=== PATIENT | male | born 1970 | race Caucasian/White ===

== ENCOUNTER 2020-04-08 01:44 | Outpatient (CLI) | payer OTHER, SELFPAY ==
[2020-04-09 00:21] LABS: SARS-CoV-2 RNA PCR Negative
== END 2020-04-08 01:45 | disposition home or self-care (01) ==
LOC: ANHCOVIDDT 01:44
PROVIDERS: PCP Family Medicine; Visit Provider Internal Medicine Gastroenterology
DX: Z01.812 Encounter for preprocedural laboratory examination (principal); Z20.822 Contact with and (suspected) exposure to COVID-19
CPT/HCPCS: C9803; U0003; U0005

== ENCOUNTER 2020-04-12 00:30 | Day surgery (SDC) | payer OTHER, SELFPAY ==
[2020-04-05 13:41] VITALS: BMI 23.9
--- NOTE | 2020-04-11 12:57 | WPDANESEPPF ---
Anes - Initial Pre Proc Eval Procedure: Operation Date: 04/12/20 07:30 Proposed Procedures p Colonoscopy - Ronald Park MD Date/Time: 04/11/20 12:57 Surgeon: Ronald Park MD Pre Op Diagnosis: Positive Cologard Patient Data Age: 49 Gender: M Height: 1.83 m Weight: 80 kg Allergies Allergy/AdvReac Type Severity Reaction Status Date / Time No Known Allergies Allergy Unverified 04/12/20 06:15 Home Medications Medication Instructions Recorded Confirmed Type metoprolol succinate 25 mg 25 mg PO DAILY #90 tablet 10/13/19 04/05/20 Rx tablet,extended release 24 hr sodium,potassium,mag sulfates 17.5 See Rx Instructions PO .COMPLEX 04/04/20 Rx gram-3.13 gram-1.6 gram oral soln #354 ml lisinopril 10 mg PO DAILY 04/05/20 04/05/20 History bjtch-9-dve-epa-tuna oil 2 tablet PO DAILY 04/05/20 04/05/20 History Patient hx anesthesia problems: none Family hx anesthesia problems: none [facility] Past Medical History Medical History Chewing tobacco nicotine dependence without complication Essential (primary) hypertension Lipoprotein deficiency Social History Social History Smoking status: Never smoker Smokeless tobacco user: chewing tobacco Alcohol intake: current Substance use: never Substance use type: does not use Living arrangements: with family Spiritual care concerns: No Anes - Eval Final PreProcedure Day of Procedure 04/11/20 12:57 Patient weight: normal Heart: regular rate and rhythm Lungs: clear to auscultation and normal air movement Airway: Mallampati scale class II Neurological: alert and oriented Last oral intake: >/= 8 hours ASA classification: II Emergent: no Anesthetic plan: proceed Anesthesia type and monitoring: general GIVS and standard monitoring Informed Consent: The patient's anesthetic plan and its attendant risks and benefits were discussed with the patient/family/POA. Questions were solicited and answers provided to the satisfaction of the patient/family/POA.
[2020-04-12 06:16] VITALS: BP 121/87; PULSE 110; RESP 18; TEMP 36.6; O2SAT 99; BMI 23.3
[2020-04-12] MEDS: LACTATED RINGERS 1,000 ML 150 ML IV CONT (06:26)
[2020-04-12] MEDS: SIMETHICONE ORAL SUSPENSION 20 MG/0.3 ML 30 ML BOTTLE 0.6 ML IRRIGATION (08:07)
--- NOTE | 2020-04-12 08:43 | WPDGICN ---
Assessment and Plan Assessment and plan (1) Colon cancer screening: Code(s): Z12.11 - Encounter for screening for malignant neoplasm of colon Status: Acute Assessment and Plan: Patient presents for screening colonoscopy. He did have a positive cologuard test. No other risk factors are evident. Plan is for colonoscopy now further recommendations will be given after endoscopy GI Consult Note Consult date/time: 04/12/20 08:43 HPI: Richard Martínez is a 49 year old male Seen in evaluation at the request of Dr. Terrence Hunter. Patient presents for neoplasia screening colonoscopy. He recently had a positive colo guard test. patient states that his current weight appetite bowel movements are normal. He denies abdominal pain. He has had no bleeding. His weight has remained stable. Family history is noncontributory. Review of Systems Review of Systems: All systems reviewed & are unremarkable except as noted in HPI and below PMFSH Past Medical History Medical History Chewing tobacco nicotine dependence without complication Essential (primary) hypertension Lipoprotein deficiency Social History Social History (Reviewed 02/04/20 @ 11:34 by Ivon Reyes [facility]) Smoking status: Never smoker Smokeless tobacco user: chewing tobacco Alcohol intake: current Substance use: never Substance use type: does not use Living arrangements: with family Spiritual care concerns: No Meds Home Medications and Allergies Home Medications Medication Instructions Recorded Confirmed Type metoprolol succinate 25 mg 25 mg PO DAILY #90 tablet 10/13/19 04/05/20 Rx tablet,extended release 24 hr sodium,potassium,mag sulfates 17.5 See Rx Instructions PO .COMPLEX 04/04/20 Rx gram-3.13 gram-1.6 gram oral soln #354 ml lisinopril 10 mg PO DAILY 04/05/20 04/05/20 History fawad-9-edf-epa-tuna oil 2 tablet PO DAILY 04/05/20 04/05/20 History Allergies Allergy/AdvReac Type Severity Reaction Status Date / Time No Known Allergies Allergy Unverified 04/12/20 06:15 Vital Signs Vital Signs - 24 hr 04/12/20 06:16 Temperature 98 F Pulse Rate 110 H Respiratory Rate 18 Blood Pressure 121/87 Pulse Oximetry 99 Exam Narrative: Exam Narrative: Physical exam reveals patient to be alert. Vital signs stable. HEENT exam unremarkable. Patient is anicteric. Lungs are clear to auscultation and percussion. Heart is without murmur or extra sounds. Abdominal exam bowel sounds are present soft nontender with no organomegaly. Digital external rectal exam normal.
[2020-04-12 08:45] VITALS: BP 107/78; PULSE 92; RESP 18; O2SAT 97
[2020-04-12 08:55] VITALS: BP 110/77; PULSE 101; RESP 20; O2SAT 100
[2020-04-12 09:05] VITALS: BP 139/94; PULSE 88; RESP 17; O2SAT 100
== END 2020-04-12 09:26 | disposition home or self-care (01) ==
PROVIDERS: PCP Family Medicine; Visit Provider Internal Medicine Gastroenterology
PROC: 0DJD8ZZ Inspection of Lower Intestinal Tract, Via Natural or Artificial Opening Endoscopic (ICD-10-PCS; CPT 45378; principal; 2020-04-12 07:30)
DX: Z12.11 Encounter for screening for malignant neoplasm of colon (principal); D12.2 Benign neoplasm of ascending colon; D12.3 Benign neoplasm of transverse colon; D12.4 Benign neoplasm of descending colon; K63.5 Polyp of colon; R19.5 Other fecal abnormalities; I10 Essential (primary) hypertension; E78.6 Lipoprotein deficiency; F17.220 Nicotine dependence, chewing tobacco, uncomplicated
CPT/HCPCS: 45385; 45381; 88305; C9803; J2704; J7120; U0003; U0005

== ENCOUNTER 2020-12-08 02:19 | Day surgery (SDC) | payer OTHER, SELFPAY ==
[2020-11-24 13:23] VITALS: BMI 23.9
[2020-12-08 07:47] VITALS: BP 136/102; PULSE 87; RESP 16; TEMP 36.5; O2SAT 97; BMI 23.7
[2020-12-08] MEDS: LACTATED RINGERS 1,000 ML 150 ML IV CONT (07:55)
[2020-12-08 07:57] VITALS: BP 120/91
--- NOTE | 2020-12-08 07:58 | P.CONGI_ITS ---
Assessment and Plan Assessment and plan (1) History of colon polyps: Code(s): Z86.010 - Personal history of colonic polyps Status: Acute Assessment and Plan: Patient had several large benign colon polyps removed from the colon piecemeal fashion in March 2020. Patient presents today for follow-up examination to ensure complete excision of these polyps. Further recommendation will be given after endoscopy. GI Consult Note Consult date/time: 12/08/20 07:58 HPI: Richard Martínez is a 50 year old male Presents for follow-up colonoscopy. Patient has a history of very large colon polyp resected in March of 2020. He states his current weight appetite bowel movements normal. He has had no abdominal pain. He has had no bleeding. His family history is noncontributory. Because of the very large size of the polyp which was removed piecemeal fashion he presents today for follow-up exam. Review of Systems Review of Systems: All systems reviewed & are unremarkable except as noted in HPI and below PMFSH Past Medical History Medical History Chewing tobacco nicotine dependence without complication Essential (primary) hypertension Lipoprotein deficiency Social History Social History (Updated 10/06/20 @ 11:18 by Gracie Bojorquez [facility]) Smoking status: Never smoker Smokeless tobacco user: chewing tobacco Alcohol intake: never Substance use: never Substance use type: does not use Living arrangements: with family Spiritual care concerns: No Meds Home Medications and Allergies Home Medications Medication Instructions Recorded Confirmed Type bvnsb-2-wsy-epa-tuna oil 2 tablet PO DAILY 04/05/20 12/08/20 History lisinopril 10 mg tablet 10 mg PO DAILY #90 tablet 07/03/20 12/08/20 Rx metoprolol succinate 25 mg 25 mg PO DAILY #90 tablet 10/02/20 12/08/20 Rx tablet,extended release 24 hr Allergies Allergy/AdvReac Type Severity Reaction Status Date / Time No Known Allergies Allergy Verified 12/08/20 07:45 Vital Signs Vital Signs - 24 hr 12/08/20 07:47 12/08/20 07:57 Temperature 97.7 F Pulse Rate 87 Respiratory Rate 16 Blood Pressure 136/102 H 120/91 H Pulse Oximetry 97 Exam Narrative: Physical exam reveals patient be alert. Vital signs stable. HEENT exam is unremarkable. Patient is anicteric. Lungs are clear to auscultation and percussion. Heart is without murmur or extra sounds. Abdominal exam bowel sounds are present soft nontender with no organomegaly. Digital external rectal exam is normal.
--- NOTE | 2020-12-08 08:16 | WPDANESEPPF ---
Anes - Initial Pre Proc Eval Procedure: Operation Date: 12/08/20 08:30 Proposed Procedures p Screening Colonoscopy - Ronald Park MD Date/Time: 12/08/20 08:16 Surgeon: Ronald Park MD Pre Op Diagnosis: hx of colon polyps Z86.010 Patient Data Age: 50 Gender: M Height: 1.83 m Weight: 79.3 kg Last Vital Signs Temp 97.7 F 12/08/20 07:47 Pulse 87 12/08/20 07:47 Resp 16 12/08/20 07:47 BP 120/91 H 12/08/20 07:57 Pulse Ox 97 12/08/20 07:47 Allergies Allergy/AdvReac Type Severity Reaction Status Date / Time No Known Allergies Allergy Verified 12/08/20 07:45 Home Medications Medication Instructions Recorded Confirmed Type sobid-3-uzh-epa-tuna oil 2 tablet PO DAILY 04/05/20 12/08/20 History lisinopril 10 mg tablet 10 mg PO DAILY #90 tablet 07/03/20 12/08/20 Rx metoprolol succinate 25 mg 25 mg PO DAILY #90 tablet 10/02/20 12/08/20 Rx tablet,extended release 24 hr Patient hx anesthesia problems: none Family hx anesthesia problems: none Results Review: All pre-operative results and documents have been reviewed as part of the pre-operative evaluation. [facility] Past Medical History Medical History Chewing tobacco nicotine dependence without complication Essential (primary) hypertension Lipoprotein deficiency Social History Social History (Updated 10/06/20 @ 11:18 by Gracie Bojorquez CMA) Smoking status: Never smoker Smokeless tobacco user: chewing tobacco Alcohol intake: never Substance use: never Substance use type: does not use Living arrangements: with family Spiritual care concerns: No Anes - Eval Final PreProcedure Day of Procedure 12/08/20 08:16 Patient weight: normal Heart: regular rate and rhythm Lungs: clear to auscultation Airway: Mallampati scale class II Neurological: alert and oriented Last oral intake: >/= 8 hours ASA classification: II Emergent: no Anesthetic plan: proceed Anesthesia type and monitoring: general GIVS and standard monitoring Results Review: All pre-operative results and documents have been reviewed as part of the pre-operative evaluation. Informed Consent: The patient's anesthetic plan and its attendant risks and benefits were discussed with the patient/family/POA. Questions were solicited and answers provided to the satisfaction of the patient/family/POA.
[2020-12-08 08:51] VITALS: BP 96/67; PULSE 88; RESP 22
[2020-12-08 09:01] VITALS: BP 109/76; PULSE 89; RESP 20
[2020-12-08 09:11] VITALS: BP 143/106; PULSE 90; RESP 22
== END 2020-12-08 09:19 | disposition home or self-care (01) ==
PROVIDERS: PCP Family Medicine; Visit Provider Internal Medicine Gastroenterology
PROC: 0DJD8ZZ Inspection of Lower Intestinal Tract, Via Natural or Artificial Opening Endoscopic (ICD-10-PCS; CPT 45378; principal; 2020-12-08 08:30)
DX: Z12.11 Encounter for screening for malignant neoplasm of colon (principal); K63.5 Polyp of colon; K64.8 Other hemorrhoids; K57.30 Diverticulosis of large intestine without perforation or abscess without bleeding; I10 Essential (primary) hypertension; E78.6 Lipoprotein deficiency
CPT/HCPCS: 45385; 88305; J2704; J7120

== ENCOUNTER 2022-04-01 13:08 | Emergency (ER) | payer OTHER, SELFPAY ==
--- NOTE | 2022-04-01 13:14 | ED.URI ---
HPI - URI/Sore Throat General Chief Complaint: Upper Respiratory Infection Stated Complaint: Sore Throat,Bilateral Eye Irritation,Lt Ear Time Seen by Provider: 04/01/22 14:03 Source: patient and RN notes reviewed Mode of arrival: ambulatory Limitations: no limitations History of Present Illness HPI Narrative: 51-year-old male presents with concern for 4 day history of nasal drainage, sore throat, ear pressure, cough. Reports body aches and fatigue. He denies known sick contacts. He reports he had a negative COVID test at home. MD elicited complaint: cough and sore throat Related Data Allergies Allergy/AdvReac Type Severity Reaction Status Date / Time No Known Allergies Allergy Verified 04/01/22 13:41 Review of Systems Review of Systems: CONSTITUTIONAL: Reports malaise, fatigue. Denies chills, sweats, or fever. EYES: Denies visual changes, redness, or discharge. ENT: Reports rhinorrhea, congestion, sore throat. Denies sinus pain, otalgia CARDIOVASCULAR: Denies chest pain, palpitations, or edema. RESPIRATORY: Reports cough. Denies dyspnea. GASTROINTESTINAL: Denies abdominal pain, nausea, vomiting, diarrhea SKIN: Denies rash or itching. MUSCULOSKELETAL: Reports myalgia. NEUROLOGIC: Denies headache. All systems reviewed & are unremarkable except as noted in HPI and below PMFSH Past Medical History Medical History Chewing tobacco nicotine dependence without complication Essential (primary) hypertension Lipoprotein deficiency Social History Social History (Updated 03/13/22 @ 13:21 by Oxana Soto MA) Smoking status: Never smoker Smokeless tobacco user: chewing tobacco Alcohol intake: never Substance use: never Substance use type: does not use Lack of Transportation: No Lack of Food: Never True Current Housing: I Have Housing Concerned About Future Housing: No Difficulty Paying Gas/Electric Bills: No Difficulty Paying for Meds: No Currently Unemployed: No Education: High School Diploma/GED Difficulty w/ Childcare or Family Care: No Spiritual care concerns: No Comments At time of signature, agree with nursing past medical, surgical, social and family history. There is no relevant family history pertinent to the presenting complaint Exam Narrative: GENERAL: Nontoxic appearing and in no acute distress. HEAD: Normocephalic EYES: PERRLA, conjunctivae clear ENT: Nares clear, turbinates edematous and erythematous, clear discharge. Mucous membranes moist. TM pearly cota with dull light reflex bilaterally; no tragal tenderness. Oropharynx not erythematous without lesions. Tonsils not enlarged and without exudate, no drooling, no hoarseness, no trismus, uvula midline. NECK: Supple. No lymphadenopathy CHEST: Clear to auscultation, breath sounds equal. No wheezing, rhonchi, rales, or stridor. No respiratory distress, speaks in full sentences. HEART: Regular rate and rhythm. No murmur heard. SKIN: Warm, dry, no rash. NEURO: Alert and oriented x3. PSYCH: Normal mood and affect Course Course Emergency Course: Patient is aware of diagnosis, understands and agrees to treatment plan. Anticipatory guidance given. Patient agrees to follow-up as directed and is aware of reasons to seek care at the emergency department. Portions of this record may have been created with voice recognition software Level of Care: Express Care Visit Vital Signs Vital signs: Reviewed. MDM - URI/Sore Throat MDM Narrative Medical decision making narrative: Differential diagnosis considered: [place] virus, strep pharyngitis, allergic rhinitis, upper respiratory tract infection, sinusitis, rhinosinusitis, nasopharyngitis. viral pharyngitis, otitis media, otitis externa, pneumonia, bronchitis, viral cough syndrome, viral syndrome, and influenza. Exam findings show no acute concerns or changes; patient is non-toxic appearing and is in no distress. Patient is approp
[2022-04-01 13:29] VITALS: BP 140/97; PULSE 95; RESP 18; TEMP 36.8; O2SAT 99
== END 2022-04-01 14:14 | disposition home or self-care (01) ==
PROVIDERS: Emergency Provider Nurse Practitioner; PCP Family Medicine
DX: J06.9 Acute upper respiratory infection, unspecified (principal); F17.220 Nicotine dependence, chewing tobacco, uncomplicated
CPT/HCPCS: 87081; 87804; 87880; 99213; G0463

== ENCOUNTER 2024-01-28 01:13 | Day surgery (SDC) | payer OTHER, SELFPAY ==
[2024-01-19 11:19] VITALS: BMI 25.1
[2024-01-28 10:17] VITALS: BP 118/80; PULSE 91; RESP 18; TEMP 36; O2SAT 100; BMI 24.6
[2024-01-28] MEDS: LACTATED RINGERS 1,000 ML 150 ML IV CONT (10:28)
--- NOTE | 2024-01-28 10:29 | PM.HPGS ---
History of Present Illness History of Present Illness Consent: Risks, benefits, and alternatives have been discussed and questions answered. Patient agrees to proceed with procedure. Chief complaint: Personal Hx. colon polyps Narrative: Richard Montoya is a 53 year old male with colon polyp in 2020 Review of Systems Review of Systems: All systems reviewed & are unremarkable except as noted in HPI and below PMFSH Past Medical History Medical History Chewing tobacco nicotine dependence without complication Essential (primary) hypertension Lipoprotein deficiency Social History Social History Smoking status: Never smoker Smokeless tobacco user: chewing tobacco Alcohol intake: never Substance use: never Substance use type: does not use Lack of Transportation: No Lack of Food: Never True Current Housing: I Have Housing Concerned About Future Housing: No Difficulty Paying Gas/Electric Bills: No Difficulty Paying for Meds: No Currently Unemployed: No Education: High School Diploma/GED Difficulty w/ Childcare or Family Care: No Living arrangements: with family Spiritual care concerns: No Meds Home Medications and Allergies Home Medications Medication Instructions Recorded Confirmed Type atorvastatin 10 mg tablet 10 mg PO QHS #90 tabs 08/18/23 01/28/24 Rx lisinopril 20 mg tablet 20 mg PO DAILY #90 tabs 08/18/23 01/28/24 Rx metoprolol succinate 25 mg 25 mg PO DAILY #90 tabs 09/15/23 01/28/24 Rx tablet,extended release 24 hr Allergies Allergy/AdvReac Type Severity Reaction Status Date / Time No Known Allergies Allergy Verified 01/28/24 10:15 Vital Signs Vital Signs - 24 hr 01/28/24 10:17 Temperature 96.8 F L Pulse Rate 91 Respiratory Rate 18 Blood Pressure 118/80 Pulse Oximetry 100 Oxygen Delivery Room Air Exam Const: General: comfortable and no acute distress HENMT: Face/Nose/Sinus: Normal nares present Eyes: General: appearance normal, both eyes and all related structures Neck: Neck: no JVD Resp: Auscultation: clear to auscultation bilaterally Cardio: Rate: regular rate Rhythm: regular rhythm GI: Inspection: non-distended GI Palp: Yes Soft to palpation Skin: General skin exam: normal color Neuro: General: gait normal Speech: normal speech Extrem: General: normal to inspection Psych: Mental Status: mental status grossly normal Assessment and Plan Assessment and plan (1) History of colon polyps: Code(s): Z86.010 - Personal history of colon polyps Status: Acute Assessment and Plan: colonoscopy
--- NOTE | 2024-01-28 10:49 | P.PNAN_ITS ---
Anes - Initial Pre Proc Eval Procedure: Operation Date: 01/28/24 11:00 Proposed Procedures p Colonoscopy - Tim Petersen MD Date/Time: 01/28/24 10:49 Surgeon: Tim Petersen MD Pre Op Diagnosis: Personal Hx. colon polyps Patient Data Age: 53 Gender: M Height: 1.83 m Weight: 82.4 kg Last Vital Signs Temp 36.0 C L 01/28/24 10:17 Pulse 91 01/28/24 10:17 Resp 18 01/28/24 10:17 BP 118/80 01/28/24 10:17 Pulse Ox 100 01/28/24 10:17 O2 Del Method Room Air 01/28/24 10:17 Allergies Allergy/AdvReac Type Severity Reaction Status Date / Time No Known Allergies Allergy Verified 01/28/24 10:15 Home Medications Medication Instructions Recorded Confirmed Type atorvastatin 10 mg tablet 10 mg PO QHS #90 tabs 08/18/23 01/28/24 Rx lisinopril 20 mg tablet 20 mg PO DAILY #90 tabs 08/18/23 01/28/24 Rx metoprolol succinate 25 mg 25 mg PO DAILY #90 tabs 09/15/23 01/28/24 Rx tablet,extended release 24 hr Patient hx anesthesia problems: none Family hx anesthesia problems: none Results Review: All pre-operative results and documents have been reviewed as part of the pre- operative evaluation. [facility] Past Medical History Medical History Chewing tobacco nicotine dependence without complication Essential (primary) hypertension Lipoprotein deficiency Social History Social History Smoking status: Never smoker Smokeless tobacco user: chewing tobacco Alcohol intake: never Substance use: never Substance use type: does not use Lack of Transportation: No Lack of Food: Never True Current Housing: I Have Housing Concerned About Future Housing: No Difficulty Paying Gas/Electric Bills: No Difficulty Paying for Meds: No Currently Unemployed: No Education: High School Diploma/GED Difficulty w/ Childcare or Family Care: No Living arrangements: with family Spiritual care concerns: No Anes - Eval Final PreProcedure Day of Procedure 01/28/24 10:49 Patient weight: normal Heart: regular rate and rhythm Lungs: clear to auscultation Airway: Mallampati scale class II Neurological: alert and oriented Last oral intake: >/= 8 hours ASA classification: II Emergent: no Anesthetic plan: proceed Anesthesia type and monitoring: general GIVS Results Review: All pre-operative results and documents have been reviewed as part of the pre- operative evaluation. Informed Consent: The patient's anesthetic plan and its attendant risks and benefits were discussed with the patient/family/POA. Questions were solicited and answers provided to the satisfaction of the patient/family/POA.
[2024-01-28 11:07] VITALS: BP 106/72; PULSE 94; RESP 19; O2SAT 95
[2024-01-28 11:17] VITALS: BP 104/76; PULSE 87; RESP 16; O2SAT 96
[2024-01-28 11:27] VITALS: BP 116/82; PULSE 84; RESP 20; O2SAT 99
== END 2024-01-28 11:35 | disposition home or self-care (01) ==
PROVIDERS: PCP Family Medicine; Visit Provider Internal Medicine Gastroenterology
PROC: 0DJD8ZZ Inspection of Lower Intestinal Tract, Via Natural or Artificial Opening Endoscopic (ICD-10-PCS; CPT 45378; principal; 2024-01-28 11:00)
DX: Z12.11 Encounter for screening for malignant neoplasm of colon (principal); K57.30 Diverticulosis of large intestine without perforation or abscess without bleeding; K64.8 Other hemorrhoids; Z86.0100 Personal history of colon polyps, unspecified; I10 Essential (primary) hypertension; E78.6 Lipoprotein deficiency; F17.220 Nicotine dependence, chewing tobacco, uncomplicated
CPT/HCPCS: 45378; J2704; J7120

== ENCOUNTER 2024-09-23 09:52 | Outpatient (CLI) | payer OTHER, SELFPAY ==
--- NOTE | 2024-09-23 10:47 | ECG_ITS ---
Test Date: 2024-09-23 11:05:10 Measurements Intervals [place] Rate: 75 P: 23 ME: 149 QRS: 31 QRSD: 90 T: 28 QT: 363 QTc: 405 Interpretive Statements SINUS RHYTHM INTERPRETATION BASED ON A DEFAULT AGE OF 40 YEARS No previous ECG available for comparison Electronically Signed On 09-24-2024 07:15:55 CDT by Wesley Wood M.D.
[2024-09-23 11:18] LABS: Hematocrit 44.7 % (42.0-52.0); Hemoglobin 14.4 g/dL (14.0-18.0); Immature Granulocyte Percent A 0.4 % (0-0.5); Lymphocytes Absolute Auto 2.09 K/mm3 (0.9-3.2); Mean Corpuscular HGB Conc 32.2 g/dl (32-36); Mean Corpuscular Hemoglobin 28.9 pg (26-34); Mean Corpuscular Volume 89.6 fl (80-100); Nucleated Red Blood Cells Absolute Auto 0.000 K/mm3 (0.0-0.012); Nucleated Red Blood Cells Perc 0.0 % (0.0-0.2); Platelet Count Result 333 k/mm3 (150-375); Red Blood Count 4.99 M/mm3 (4.6-6.20); White Blood Count 7.6 K/mm3 (4.5-10.0)
[2024-09-23 11:27] LABS: Alanine Aminotransferase 59 U/L (6-50); Albumin Level 4.4 g/dL (3.5-5.1); Alkaline Phosphatase 81 U/L (38-126); Anion Gap 10 mmol/L (4-12); Aspartate Amino Transferase 53 U/L (17-59); Bilirubin,Total 0.7 mg/dL (0.2-1.3); Blood Urea Nitrogen 18 mg/dL (9-20); Calcium 9.3 mg/dL (8.4-10.2); Carbon Dioxide 27 mmol/L (22-30); Chloride 103 mmol/L (98-107); Estimated Glomerular Filt Rate 54; Glucose 99 mg/dL (65-110); Potassium 4.3 mmol/L (3.4-5.0); Sodium 140 mmol/L (137-145); Total Protein 7.7 g/dL (6.3-8.2)
[2024-09-23 11:38] LABS: INR 1.1; Prothrombin Time 13.8 Seconds (11.1-14.7)
[2024-09-23 11:39] LABS: Partial Thromboplastin Time 26.0 Seconds (22.3-36.8)
== END 2024-09-23 09:53 | disposition home or self-care (01) ==
LOC: ANHSURGERY 09:55
PROVIDERS: PCP Family Medicine; Visit Provider Urology
DX: C61 Malignant neoplasm of prostate (principal); I10 Essential (primary) hypertension; R97.20 Elevated prostate specific antigen [PSA]; Z01.818 Encounter for other preprocedural examination
CPT/HCPCS: 36415; 80053; 85025; 85610; 85730; 86850; 86900; 86901; 87086; 93005

== ENCOUNTER 2024-10-06 19:06 | Observation (INO) | payer OTHER, SELFPAY ==
[2024-09-23 10:01] VITALS: BP 124/86; PULSE 86; RESP 16; TEMP 37.1; O2SAT 98; BMI 25.7
--- NOTE | 2024-09-23 10:12 | PC.NURSE ---
Addendum entered by Flor Frye RN 09/23/24 10:38: BOWEL PREP DAY BEFORE SURGERY PER DR JEAN, PT AWARE & RELAYS UNDERSTANDING. Original Note: Report to the Outpatient Waiting Room, entrance under the green pavilion located off [facility], at time __6:00AM____ on date ___10/05/24___. Planned Procedure Time: ___7:30AM____.? Time changes happen often and if your time is changed the preop area will call you the afternoon before. - You and your visitor will be asked to self-screen and do not enter if you have any COVID symptoms. Please call surgeon if you need to reschedule. - A mask is optional within the hospital at this time. Patients may have clear liquids (water, carbonated beverages, clear teas, apple juice) until 3 hours prior to surgery (4:30AM) with a maximum of 20 ounces. - No food from midnight until time of surgery and no smoking, or chewing tobacco (or any form of nicotine). No chewing gum, candy or mints. Take only the following medications with a SIP of water on the morning of surgery: METOPROLOL DO NOT STOP ANY OF YOUR OTHER PRESCRIPTION MEDICATIONS PRIOR TO SURGERY EXCEPT THE FOLLOWING Hold all vitamins and supplements for 3 days per anesthesiologist. Medications to discontinue per physician NONE Date to take last dose Please no make-up, nail british, hairspray, perfume, deodorant, or body powder the day of surgery.? No jewelry (including any body piercings) or valuables the day of surgery, leave them at home.? Please take a shower or bath the night before, or the morning of, surgery with an antibacterial soap.? Wear comfortable, loose fitting clothing.? - Jewelry must be removed prior to entering the operating room.? Rings and piercings that are not removed may be cut off. - The hospital will not accept responsibility for valuables.? - Please leave all valuables, including medications, at home the day of surgery. If you are going home after surgery, a licensed hack driver must drive you home.? - NO public transportation without another adult if you receive anesthesia. - We recommend that an adult stay with you for 24 hours following discharge. - We also recommend that you do not drive, make important decision, drink alcoholic beverages, or take any drugs that were not prescribed by your health care provider for at least 24 hours after your discharge time. Follow any additional instructions given to you from your surgeon. Telephone instructions given to ____PATIENT and asked if any additional questions and then verbalized understanding. Patient advised to call surgeon office or pre surgery nurse liaison [phone] if any additional questions.
--- NOTE | 2024-10-04 14:32 | P.PNAN_ITS ---
Anes - Initial Pre Proc Eval Procedure: Operation Date: 10/05/24 07:30 Proposed Procedures p Robotic Assisted Nerve Sparing Prostatectomy with Bilateral Pelvic Lymph Node Dissection - José Manuel Loo MD Date/Time: 10/04/24 14:32 Surgeon: José Manuel Loo MD Pre Op Diagnosis: Prostate Ca Patient Data Age: 54 Gender: M Height: 1.83 m Weight: 85.9 kg Last Vital Signs Temp 98.7 F 09/23/24 10:01 Pulse 86 09/23/24 10:01 Resp 16 09/23/24 10:01 BP 124/86 09/23/24 10:01 Pulse Ox 98 09/23/24 10:01 O2 Del Method Room Air 09/23/24 10:01 Allergies Allergy/AdvReac Type Severity Reaction Status Date / Time No Known Allergies Allergy Verified 09/24/24 09:21 Home Medications ?Medication ?Instructions ?Recorded ?Confirmed ?Type atorvastatin 10 mg tablet 10 mg PO QHS #90 tabs 08/11/24 10/05/24 Rx lisinopril 20 mg tablet 20 mg PO DAILY #90 tabs 08/11/24 10/05/24 Rx metoprolol succinate 25 mg 25 mg PO DAILY #90 tabs 09/08/24 10/05/24 Rx tablet,extended release 24 hr Patient hx anesthesia problems: none Family hx anesthesia problems: none Results Review: All pre-operative results and documents have been reviewed as part of the pre- operative evaluation. [facility] Past Medical History Medical History Chewing tobacco nicotine dependence without complication Essential (primary) hypertension Lipoprotein deficiency Social History Social History Smoking status: Never smoker Tobacco type: smokeless tobacco Smokeless tobacco user: chewing tobacco Additional smoking assessment comments: CURRENTLY CHEWS TOBACCO Alcohol intake: never Substance use: never Substance use type: does not use Lack of Transportation: No Lack of Food: Never True Current Housing: I Have Housing Concerned About Future Housing: No Difficulty Paying Gas/Electric Bills: No Difficulty Paying for Meds: No Currently Unemployed: No Education: High School Diploma/GED Difficulty w/ Childcare or Family Care: No Living arrangements: with family Additional living arrangements comments: SPOUSE Spiritual care concerns: No Anes - Eval Final PreProcedure Day of Procedure 10/04/24 14:32 Patient weight: normal Heart: regular rate and rhythm Lungs: clear to auscultation Airway: Mallampati scale class II Neurological: alert and oriented Last oral intake: >/= 8 hours ASA classification: III Emergent: no Anesthetic plan: proceed Anesthesia type and monitoring: general ETT and standard monitoring Results Review: All pre-operative results and documents have been reviewed as part of the pre- operative evaluation. Informed Consent: The patient's anesthetic plan and its attendant risks and benefits were discussed with the patient/family/POA. Questions were solicited and answers provided to the satisfaction of the patient/family/POA.
[2024-10-05] VITALS (13 sets, daily range): BP systolic 120–159; BP diastolic 81–106; PULSE 82–108; RESP 15–20; TEMP 35.9–36.9; O2SAT 93–100; BMI 25.0
[2024-10-05] MEDS: LACTATED RINGERS 1,000 ML 30 ML IV CONT ×2 (06:45→12:16)
--- NOTE | 2024-10-05 07:09 | PM.IMHP ---
H&P: HPI History of Present Illness Date/Time: 10/05/24 07:09 Chief Complaint: Adenocarcinoma of prostate Narrative: 54 yr old male with psa of 7.47 adn Celestine 3+4=7 adenocarcinoma of prostate. Presents for robotic assist nerve sparing prostatectomy with possible PLND> Review of Systems Review of Systems: All systems reviewed & are unremarkable except as noted in HPI and below PMFSH Past Medical History Medical History Chewing tobacco nicotine dependence without complication Essential (primary) hypertension Lipoprotein deficiency Social History Social History Smoking status: Never smoker Tobacco type: smokeless tobacco Smokeless tobacco user: chewing tobacco Additional smoking assessment comments: CURRENTLY CHEWS TOBACCO Alcohol intake: never Substance use: never Substance use type: does not use Lack of Transportation: No Lack of Food: Never True Current Housing: I Have Housing Concerned About Future Housing: No Difficulty Paying Gas/Electric Bills: No Difficulty Paying for Meds: No Currently Unemployed: No Education: High School Diploma/GED Difficulty w/ Childcare or Family Care: No Living arrangements: with family Additional living arrangements comments: SPOUSE Spiritual care concerns: No Meds Home Medications and Allergies Home Medications ?Medication ?Instructions ?Recorded ?Confirmed ?Type atorvastatin 10 mg tablet 10 mg PO QHS #90 tabs 08/11/24 10/05/24 Rx lisinopril 20 mg tablet 20 mg PO DAILY #90 tabs 08/11/24 10/05/24 Rx metoprolol succinate 25 mg 25 mg PO DAILY #90 tabs 09/08/24 10/05/24 Rx tablet,extended release 24 hr Allergies Allergy/AdvReac Type Severity Reaction Status Date / Time No Known Allergies Allergy Verified 09/24/24 09:21 Vital Signs Vital Signs - 24 hr 10/05/24 06:59 Temperature 36.8 C Pulse Rate 82 Blood Pressure 120/93 H Pulse Oximetry 99 Oxygen Delivery Room Air Exam Const: General: cooperative, comfortable and no acute distress Resp: Effort & Inspection: normal respiratory effort Cardio: Rate: regular rate Rhythm: regular rhythm Assessment and Plan Assessment and plan (1) Prostate cancer: Code(s): C61 - Malignant neoplasm of prostate Status: Acute Assessment and Plan: Robotic assist nerve sparing prostatectomy with possible bilateral PLND
--- NOTE | 2024-10-05 07:11 | WPDHPUPDATE1 ---
History and Physical Update Update Date/Time: 10/05/24 07:11 History and Physical has been reviewed, including an updated exam of the patient. There are NO changes in the patient's condition. Risks, benefits, and alternatives have been discussed and questions answered. Patient agrees to proceed with procedure.
[2024-10-05] MEDS: ceFAZolin 2 GM in SODIUM CHLORIDE 0.9% IV 50 ML 100 ML IVPB (07:35)
[2024-10-05] MEDS: BUPivacaine HCL 0.5% 10 ML AMP 30 ML INFILTRATE (09:24)
--- NOTE | 2024-10-05 11:03 | S_PTH ---
PATIENT: Richard Martínez LOC: [id number] U#:[id number] AGE/SX: 54/M ROOM: 327 RE10/06/[address]: José Manuel Loo, : 1970 BED: 01 DIS: 10/07/2024 SPEC #: [id number] RECD: 10/05/24 12:43 STATUS: NONA WILBURN #: [id number] VINCENT: 10/05/24 11:[address]: Cinda,José Manuel Paz DEPT: [facility] Surgical RECD BY: Navya Herrera ENTERED: 10/05/24 12:43 SP TYPE: Surgical OTHR DR: Terrence Hunter MD Tissues: A - Prostate Procedures: Hematoxylin and Eosin Stain Gross and Microscopic Level 6
[2024-10-05] MEDS: KETOROLAC 15 MG/ML VIAL (*BKC) IV PUSH (11:42)
--- NOTE | 2024-10-05 12:02 | P.OP_ITS ---
Procedure Note - Detailed Date of Procedure 10/05/24 Pre-op Diagnosis Prostate Ca Post-op Diagnosis Same Procedure Performed Robotic assisted nerve-sparing prostatectomy with right pelvic lymph node dissection Surgeon José Manuel Loo MD Anesthesia General Description of Procedure Patient was taken to the operative suite correctly identified. Once anesthesia was obtained he was placed in low-lying dorsal lithotomy position and prepped and draped usual sterile fashion. Cristina catheter was inserted and inflated with 15 cc of saline. Supraumbilical incision was then made carried down to the rectus fascia. Veress needle was inserted and the abdomen insufflated 15 mmHg pressure. Working ports were placed in appropriate location. Patient was placed in steep Trendelenburg position the robot was docked. Attention was then given to the consult. Posterior approach was taken. Seminal vesicles were dissected out and vas is were transected. Plane to the prostate and the rectum was developed. Bladder was taken down. Space of Retzius was developed. Puboprostatic for incised. Dorsal venous complex was isolated and ligated using 0 Vicryl in secured to the pubic bone. Bladder neck sparing procedure was performed. Pedicles were clipped. Bilateral nerve-sparing was performed. Dorsal venous complex was then transected as was the urethra. Specimen was placed in Endo-Catch bag. Right pelvic lymph node dissection was performed with the boundaries being the obturator nerve, external iliac vein, Shakeel's ligament, and bifurcation. Clips were placed proximally and distally. Surgicel was placed in the obturator fossa and over the nerve bundles. A Bam stitch was then placed using 0 Vicryl. Anastomosis was performed using V lock in a running fashion. There was good approximation mucosa. S 16 [place] Cristina was inserted and filled to 10 cc in the balloon. The bladder was irrigated without any evidence of extravasation. JESSY drain was placed in the 4th arm site. Robot was undocked. Specimen was brought out through the midline incision. It had been placed in an Endo-Catch bag earlier. All lap count needle count sponge counts were correct. Midline incision was closed using 0 Vicryl in a running fashion. Subcuticular stitches were placed. Incision were anesthetized with 1% lidocaine. Patient tolerated procedure well without any complications and was taken recovery stable condition. This completes dictation. Please send a copy of op note to my office. Estimated Blood Loss 100 Drains Yes Packing No Pathology Yes Complications No immediate complications Condition Stable Disposition PACU
[2024-10-05] MEDS: fentaNYL CITRATE INJ (*CRX) 100 MCG/2 ML VIAL 25 MCG IV PUSH ×2 (12:48→12:54)
--- NOTE | 2024-10-05 13:41 | ADMGEN ---
This patient, Richard Martínez, was admitted to -. Patient/family oriented to hospital policies and general routines including ID bracelet, bed and alarms, visiting hours, pain management, procedures, bathroom and other care routines, personal items, smoking policy, room service/diet, and visiting hours. Information on how to activate the Rapid Response Team has been discussed. Patient/Family are encouraged to report perceived risks to care and to ask questions if they do not understand what they are told or what they should do.
[2024-10-05] MEDS: KETOROLAC 30 MG/ML VIAL (*BKC) IV PUSH (14:14)
[2024-10-05] MEDS: DOCUSATE SODIUM 100 MG CAPSULE PO (16:49)
[2024-10-05] MEDS: HYDROcodone/acetaminophen (*CRX) 5-325 MG TABLET 1 TAB PO (16:49)
[2024-10-05] MEDS: LACTATED RINGERS 1,000 ML 125 ML IV CONT ×2 (17:40→23:19)
[2024-10-05] MEDS: HYOSCYAMINE SULFATE 0.125 MG TABLET SUBLINGUAL (19:15)
[2024-10-05] MEDS: ATORVASTATIN 10 MG TABLET PO (20:27)
[2024-10-05] MEDS: HYDROcodone/acetaminophen (*CRX) 5-325 MG TABLET 2 TAB PO (23:18)
[2024-10-06] VITALS (7 sets, daily range): BP systolic 125–135; BP diastolic 80–85; PULSE 102–122; RESP 16–18; TEMP 36.2–36.4; O2SAT 97–99
[2024-10-06] MEDS: HYDROcodone/acetaminophen (*CRX) 5-325 MG TABLET 2 TAB PO ×3 (05:08→22:57)
[2024-10-06 06:00] LABS: Hematocrit 32.2 % (42.0-52.0); Hemoglobin 10.3 g/dL (14.0-18.0)
[2024-10-06 06:27] LABS: Anion Gap 4 mmol/L (4-12); Blood Urea Nitrogen 20 mg/dL (9-20); Calcium 8.3 mg/dL (8.4-10.2); Carbon Dioxide 28 mmol/L (22-30); Chloride 96 mmol/L (98-107); Estimated CRCL calculation 62 ml/min; Estimated Glomerular Filt Rate 57; Glucose 119 mg/dL (65-110); Potassium 4.2 mmol/L (3.4-5.0); Sodium 128 mmol/L (137-145)
--- NOTE | 2024-10-06 07:34 | P.PNUR_ITS ---
Progress Note: A&P Assessment and Plan (1) Acute hyponatremia: Code(s): E87.1 - Hypo-osmolality and hyponatremia <José Manuel Loo MD - Last Filed: 10/06/24 07:37> Status: Acute <José Manuel Loo MD - Last Filed: 10/06/24 07:37> Assessment and Plan: Recheck labs at noon. If persists will have Medicine Service involved <José Manuel Loo MD - Last Filed: 10/06/24 07:37> (2) Prostate cancer: Code(s): C61 - Malignant neoplasm of prostate <José Manuel Loo MD - Last Filed: 10/06/24 07:37> Status: Acute <José Manuel Loo MD - Last Filed: 10/06/24 07:37> Assessment and Plan: Postoperative day 1. From robotic assisted nerve-sparing prostatectomy with right pelvic lymph node dissection. Overall doing well. Will increase activity. Monitor vital signs. If tachycardia persists may need hospitalist involved <José Manuel Loo MD - Last Filed: 10/06/24 07:37> Subjective Subjective Date/Time Seen: 10/06/24 07:34 <José Manuel Loo MD - Last Filed: 10/06/24 07:37> Interval history: Typical postoperative discomfort. Urine output adequate. Slightly tachycardic since surgery and sodium level decreased at 128. <José Manuel Loo MD - Last Filed: 10/06/24 07:37> Typical postoperative discomfort. Urine output adequate. Slightly tachycardic since surgery and sodium level decreased at 128. Addendum: 1642 patient heart rate at rest was 120bpm. Na improved around noon to 134. i removed the JESSY drain and patient tolerated that well. Hospitalist consult for further management of tachycardia and na levels. <Grazyna Galo APRN - Last Filed: 10/06/24 16:45> Review of Systems Review of Systems: All systems reviewed & are unremarkable except as noted in HPI and below <José Manuel Loo MD - Last Filed: 10/06/24 07:37> Exam Const: General: cooperative, comfortable and no acute distress <José Manuel Loo MD - Last Filed: 10/06/24 07:37> Resp: Effort & Inspection: normal respiratory effort <José Manuel Loo MD - Last Filed: 10/06/24 07:37> Cardio: Rate: tachycardic <José Manuel Loo MD - Last Filed: 10/06/24 07:37> GI: Inspection: normal to inspection <José Manuel Loo MD - Last Filed: 10/06/24 07:37> Objective Data Vital Signs Vital Signs: Vital Signs - 24 hr 10/05/24 12:16 10/05/24 12:30 10/05/24 12:40 Temperature 36.5 C Pulse Rate 105 H 103 H Respiratory Rate 16 17 Blood Pressure 141/102 H 159/104 H Pulse Oximetry 100 100 Oxygen Delivery Simple Face Mask Simple Face Mask Room Air Oxygen Flow Rate 8 8 10/05/24 12:45 10/05/24 13:00 10/05/24 13:15 Temperature 36.2 C L Pulse Rate 103 H 105 H 103 H Respiratory Rate 20 15 20 Blood Pressure 144/106 H 135/100 H 139/101 H Pulse Oximetry 96 93 98 Oxygen Delivery Room Air Room Air Room Air Oxygen Flow Rate 10/05/24 13:30 10/05/24 13:45 10/05/24 14:15 Temperature 36.9 C 35.9 C L 36.9 C Pulse Rate 103 H 100 101 H Respiratory Rate 16 16 18 Blood Pressure 138/96 H 134/92 H 126/92 H Pulse Oximetry 100 95 99 Oxygen Delivery Oxygen Flow Rate 10/05/24 15:16 10/05/24 16:17 10/05/24 19:16 Temperature 36.6 C 36.2 C L Pulse Rate 100 101 H Respiratory Rate 18 18 Blood Pressure 133/88 136/87 Pulse Oximetry 99 97 98 Oxygen Delivery Room Air Oxygen Flow Rate 10/05/24 23:16 10/06/24 03:16 Temperature 36.5 C 36.4 C L Pulse Rate 108 H 102 H Respiratory Rate 18 16 Blood Pressure 133/81 129/84 Pulse Oximetry 99 99 Oxygen Delivery Oxygen Flow Rate <José Manuel Loo MD - Last Filed: 10/06/24 07:37> Intake/Output Intake/Output: Intake & Output 10/03/24 10/04/24 10/05/24 10/06/24 23:59 23:59 23:59 23:59 Intake Total 1526.3 300 Output Total 340 915 Balance 1186.3 615 <José Manuel Loo MD - Last Filed: 10/06/24 07:37> Meds/Results Medications: Active Medications Generic Name Dose Route Start Last Admin Trade Name Freq PRN Reason Stop Dose Admin Hydrocodone Bitart/Acetaminophen 1 tab 10/05/24 15:37 10/05/24 16:49 Hydrocodone/Acetaminophen (*Crx) 5-325 Mg Tablet PO 1 tab Q4H PRN Administration Pain Rated 4-6 Hydrocodone Bitart/Acetaminophen 2 tab 10/05/24 15:43 10/06/24 05:08 Hydrocodone/Acetaminophen (*Crx) 5-325 Mg Tablet PO 2 tab Q4H PRN Administration Pain Rated 7-10 Atorvastatin Calcium 10 mg 10/05/24 21:00 10/05/24 20:27 Atorvastatin 10 Mg Tablet PO 10 mg QHS MAREN Administration Docusate Sodium 100 mg 10/05/24 17:00 10/05/24 16:49 Docusate Sodium 100 Mg Capsule PO 100 mg BID MAREN Administration Hyoscyamine 0.125 mg 10/05/24 13:31 10/05/24 19:15 Hyoscyamine Sulfate 0.125 Mg Tablet SUBLINGUAL 0.125 mg Q4H PRN Administration Bladder Spasm Lactated Ringer's 1,000 mls @ 125 mls/hr 10/05/24 13:31 10/05/24 23:19 Lr - Lactated Ringers Iv IV CONT 125 mls/hr .Q8H MAREN Administration Ketorolac Tromethamine 30 mg 10/05/24 13:31 10/05/24 14:14 Ketorolac 30 Mg/Ml Vial (*Bkc) IV PUSH 10/06/24 13:30 30 mg Q6H PRN Administration Pain Rated 4-6 breakthrough Levofloxacin 500 mg 10/06/24 09:00 Levofloxacin 500 Mg Tablet PO DAILY [facility] Lisinopril 20 mg 10/06/24 09:00 Lisinopril 20 Mg Tablet PO DAILY [facility] Metoprolol Succinate 25 mg 10/06/24 09:00 Metoprolol Succinate Ext Rel 25 Mg Tabcr PO DAILY [facility] Morphine Sulfate 1 mg 10/05/24 13:31 Morphine Sulfate (*Crx) 2 Mg/Ml Inj IV PUSH Q2H PRN Pain Rated 7-10 breakthrough Naloxone HCl 0.1 mg 10/05/24 13:31 Naloxone Hcl 0.4 Mg/Ml Vial IV PUSH Q2M PRN Opiate Reversal Ondansetron HCl 4 mg 10/05/24 13:31 Ondansetron Inj 4 Mg/2 Ml Vial IV PUSH Q6H PRN Nausea And Vomiting <José Manuel Loo MD - Last Filed: 10/06/24 07:37> Labs Labs: Laboratory Results - last 24 hr 10/06/24 05:38 Hgb 10.3 L D Hct 32.2 L Sodium 128 L Potassium 4.2 Chloride 96 L Carbon Dioxide 28 Anion Gap 4 BUN 20 Creatinine 1.31 H Estim Creat Clear Calc 62 Estimated GFR 57 L Glucose 119 H Calcium 8.3 L <José Manuel Loo MD - Last Filed: 10/06/24 07:37>
[2024-10-06] MEDS: SODIUM CHLORIDE 0.9% IV 500 ML IV CONT (08:28)
[2024-10-06] MEDS: LACTATED RINGERS 1,000 ML 125 ML IV CONT ×2 (08:28→17:22)
[2024-10-06] MEDS: DOCUSATE SODIUM 100 MG CAPSULE PO ×2 (08:29→16:18)
[2024-10-06] MEDS: METOPROLOL SUCCINATE EXT REL 25 MG TABCR PO (08:29)
[2024-10-06 12:47] LABS: Anion Gap 6 mmol/L (4-12); Blood Urea Nitrogen 18 mg/dL (9-20); Calcium 8.2 mg/dL (8.4-10.2); Carbon Dioxide 28 mmol/L (22-30); Chloride 100 mmol/L (98-107); Estimated CRCL calculation 63 ml/min; Estimated Glomerular Filt Rate 58; Glucose 103 mg/dL (65-110); Potassium 3.9 mmol/L (3.4-5.0); Sodium 134 mmol/L (137-145)
[2024-10-06 17:20] LABS: Hematocrit 27.2 % (42.0-52.0); Hemoglobin 8.8 g/dL (14.0-18.0)
--- NOTE | 2024-10-06 18:03 | P.CONIM_ITS ---
Assessment and Plan Assessment and plan (1) Tachycardia: Code(s): R00.0 - Tachycardia, unspecified Status: Acute Assessment and Plan: Patient may be under resuscitated after OR verses pain related versus other 1 L fluid bolus Continue to monitor Hemoglobin is stable (2) Hyponatremia: Code(s): E87.1 - Hypo-osmolality and hyponatremia Status: Acute Assessment and Plan: Fluid bolus in IVF Repeat labs in the a.m. (3) Prostate cancer: Code(s): C61 - Malignant neoplasm of prostate Status: Acute Assessment and Plan: Status post resection Pain management per Urology [facility] Date of Consult Consult date: 10/06/24 Requesting Physician: José Manuel Loo MD Primary Care Provider: Terrence Hunter MD Consult Narrative Reason for consult: Tachycardia electrolyte imbalance Narrative: Richard Martínez is a 54 year old male here for a planned robotic assisted nerve-sparing prostatectomy with right pelvic lymph node dissection who is found to have tachycardia and electrolyte balance after surgery. Patient states that his pain is well controlled after surgery. Patient is slightly tachycardic. Hemoglobin stable after surgery. Patient denies nausea vomiting. Review of Systems 2 Review of Systems: 12 systems were reviewed and are negativ e except for as per HPI. [facility] Past Medical History Medical History (Updated 10/06/24 @ 22:20 by [place] Hanna APRN) Prostate cancer Chewing tobacco nicotine dependence without complication Essential (primary) hypertension Lipoprotein deficiency Surgical History Surgical History (Updated 10/06/24 @ 07:42 by Terrence Hunter MD) History of robot-assisted laparoscopic radical prostatectomy 2024 Social History Social History Smoking status: Current every day smoker Tobacco type: smokeless tobacco Smokeless tobacco user: chewing tobacco Additional smoking assessment comments: CURRENTLY CHEWS TOBACCO Alcohol intake: never Drinks per week: 1 Substance use: never Substance use type: does not use Do You Feel Safe in your Home?: No Lack of Transportation: No Lack of Food: Never True Current Housing: I Have Housing Concerned About Future Housing: No Difficulty Paying Gas/Electric Bills: No Difficulty Paying for Meds: No Currently Unemployed: No Education: Never Attended/Kindergarten Only Difficulty w/ Childcare or Family Care: No Living arrangements: with family Additional living arrangements comments: SPOUSE Spiritual care concerns: No Meds Home Medications and Allergies Home Medications ?Medication ?Instructions ?Recorded ?Confirmed ?Type atorvastatin 10 mg tablet 10 mg PO QHS #90 tabs 08/11/24 10/05/24 Rx lisinopril 20 mg tablet 20 mg PO DAILY #90 tabs 08/11/24 10/05/24 Rx metoprolol succinate 25 mg 25 mg PO DAILY #90 tabs 09/08/24 10/05/24 Rx tablet,extended release 24 hr Allergies Allergy/AdvReac Type Severity Reaction Status Date / Time No Known Allergies Allergy Verified 10/05/24 13:50 Vital Signs Vital Signs - 24 hr 10/05/24 19:16 10/05/24 23:16 10/06/24 03:16 Temperature 97.2 F L 97.7 F 97.5 F L Pulse Rate 101 H 108 H 102 H Respiratory Rate 18 18 16 Blood Pressure 136/87 133/81 129/84 Pulse Oximetry 98 99 99 Oxygen Delivery 10/06/24 07:16 10/06/24 08:00 10/06/24 08:29 Temperature 97.1 F L Pulse Rate 112 H 122 H Respiratory Rate 18 Blood Pressure 125/83 Pulse Oximetry 97 Oxygen Delivery Room Air 10/06/24 11:16 10/06/24 15:16 Temperature 97.1 F L 97.1 F L Pulse Rate 112 H 106 H Respiratory Rate 18 18 Blood Pressure 135/80 131/83 Pulse Oximetry 98 99 Oxygen Delivery Exam 2 Narrative: General: well appearing, appears stated age. HEENT: normocephalic, atraumatic. Mucous membranes moist. EOMI, PERRLA, bilateral sclera anicteric, no conjunctival injection. Neck supple without JVD, lymphadenopathy, or bruit. Respiratory: clear to ascultation bilaterally. No rales/rhonic/wheezes. Cardiovascular: Regular rate and rhythm, normal S1-S2 upon ascultation. No murmurs, rubs, or clicks. PMI is nondisplaced, capillary refill less than 3 second. Abdomen: Soft, round, no pulsatile masses, nondistended and nontender. No rebound, no guarding. No CVA tenderness, no hepatosplenomegaly. Bowel sounds present to all four quadrants. No high pitch or tinkling sounds, resonant to percussion. Extremities: No cyanosis, clubbing, or edema present. Pulses are palpable 2/2. Active ROM to all four extremities. Neuro: Alert and orientated x 4. PERRLA. Cranial nerves 2-12 intact without focal deficit. Skin: Warm, dry, and intact, without rash, erythema, or lesion. Psych: pleasant, cooperative, normal speech, normal affect, no hallucinations, no dysarthia Results Labs 10/06/24 21:21 10/06/24 11:46 Labs: Short CBC 10/06/24 10/06/24 Range/Units 05:38 17:13 Hgb 10.3 L D 8.8 L (14.0-18.0) g/dL Hct 32.2 L 27.2 L (42.0-52.0) % BMP 10/06/24 10/06/24 05:38 11:46 Sodium 128 L 134 L Potassium 4.2 3.9 Chloride 96 L 100 Carbon Dioxide 28 28 BUN 20 18 Creatinine 1.31 H 1.29 Glucose 119 H 103 Calcium 8.3 L 8.2 L Quality VTE Prophylaxis VTE prophylaxis: mechanical ordered Hospitalist MIPS Advance Care Plan I have confirmed that the patient's Advanced Care Plan is present, code status is documented, or surrogate decision maker is listed in patient medical record.: Yes Medication Reconciliation I have utilized all available resources to obtain, update and review the patients current medications (includes all prescriptions, OTC, herbals, cannabis, and nutritional supplements).: Yes
[2024-10-06] MEDS: SODIUM CHLORIDE 0.9% IV 1,000 ML 999 ML IV CONT (19:34)
[2024-10-06] MEDS: ATORVASTATIN 10 MG TABLET PO (20:49)
[2024-10-06 21:25] LABS: Hematocrit 29.9 % (42.0-52.0); Hemoglobin 9.7 g/dL (14.0-18.0)
--- NOTE | 2024-10-06 22:23 | ECG_ITS ---
Test Date: 2024-10-06 22:59:43 Measurements Intervals [place] Rate: 103 P: 19 NE: 152 QRS: 9 QRSD: 90 T: -12 QT: 323 QTc: 425 Interpretive Statements SINUS TACHYCARDIA NONSPECIFIC T-WAVE ABNORMALITY ABNORMAL RHYTHM ECG Compared to ECG 09/23/2024 11:05:10 T-wave abnormality now present Sinus rhythm no longer present Electronically Signed On 10-08-2024 15:38:53 CDT by Castro Downs M.D.
[2024-10-07 07:09] LABS: Hematocrit 30.1 % (42.0-52.0); Hemoglobin 9.6 g/dL (14.0-18.0)
--- NOTE | 2024-10-07 07:42 | WPDUROPN2 ---
Progress Note: A&P Assessment and Plan (1) Prostate cancer: Code(s): C61 - Malignant neoplasm of prostate Status: Acute Assessment and Plan: Improved today. Need to increase ambulation. Hemodynamically stable. May have had a slight bleed from the pedicle area or dorsal venous complex. Does not require any intervention at this point time. Hopefully discharge later today if home stable an okay from medical standpoint. Would like to see his heart rate come down a little bit more Subjective Subjective Date/Time Seen: 10/07/24 07:42 Interval history: Feeling better this morning. Hemodynamically stable. Heart rate still slightly tachycardic but improved. Hemoglobin had increased and is stable at around 9.6 this morning. Pathology is pending. Appreciate hospitalist input Review of Systems Review of Systems: All systems reviewed & are unremarkable except as noted in HPI and below Exam Const: General: cooperative, comfortable and no acute distress Resp: Effort & Inspection: normal respiratory effort Cardio: Rate: tachycardic GI: Inspection: normal to inspection Urinary Catheter: Urinary Catheter: patent and draining and urine clear Objective Data Vital Signs Vital Signs: Vital Signs - 24 hr 10/06/24 08:00 10/06/24 08:29 10/06/24 11:16 Temperature 36.2 C L Pulse Rate 122 H 112 H Respiratory Rate 18 Blood Pressure 135/80 Pulse Oximetry 98 Oxygen Delivery Room Air 10/06/24 15:16 10/06/24 19:40 10/06/24 22:00 Temperature 36.2 C L 36.4 C Pulse Rate 106 H 104 H 104 H Respiratory Rate 18 18 18 Blood Pressure 131/83 125/85 Pulse Oximetry 99 99 99 Oxygen Delivery Room Air Intake/Output Intake/Output: Intake & Output 10/04/24 10/05/24 10/06/24 10/07/24 23:59 23:59 23:59 23:59 Intake Total 1526.3 3520 300 Output Total 340 6634 900 Balance 2278.8 -558 -963 Meds/Results Medications: Active Medications Generic Name Dose Route Start Last Admin Trade Name Freq PRN Reason Stop Dose Admin Hydrocodone Bitart/Acetaminophen 1 tab 10/05/24 15:37 10/05/24 16:49 Hydrocodone/Acetaminophen (*Crx) 5-325 Mg Tablet PO 1 tab Q4H PRN Administration Pain Rated 4-6 Hydrocodone Bitart/Acetaminophen 2 tab 10/05/24 15:43 10/06/24 22:57 Hydrocodone/Acetaminophen (*Crx) 5-325 Mg Tablet PO 2 tab Q4H PRN Administration Pain Rated 7-10 Atorvastatin Calcium 10 mg 10/05/24 21:00 10/06/24 20:49 Atorvastatin 10 Mg Tablet PO 10 mg QHS MAREN Administration Docusate Sodium 100 mg 10/05/24 17:00 10/06/24 16:18 Docusate Sodium 100 Mg Capsule PO 100 mg BID MAERN Administration Hyoscyamine 0.125 mg 10/05/24 13:31 10/05/24 19:15 Hyoscyamine Sulfate 0.125 Mg Tablet SUBLINGUAL 0.125 mg Q4H PRN Administration Bladder Spasm Lactated Ringer's 1,000 mls @ 125 mls/hr 10/05/24 13:31 10/07/24 01:34 Lr - Lactated Ringers Iv IV CONT Not Given .Q8H MAREN Levofloxacin 500 mg 10/06/24 09:00 10/06/24 08:28 Levofloxacin 500 Mg Tablet PO 500 mg DAILY [facility] Administration Lisinopril 20 mg 10/06/24 09:00 10/06/24 08:29 Lisinopril 20 Mg Tablet PO 20 mg DAILY [facility] Administration Metoprolol Succinate 25 mg 10/06/24 09:00 10/06/24 08:29 Metoprolol Succinate Ext Rel 25 Mg Tabcr PO 25 mg DAILY [facility] Administration Morphine Sulfate 1 mg 10/05/24 13:31 Morphine Sulfate (*Crx) 2 Mg/Ml Inj IV PUSH Q2H PRN Pain Rated 7-10 breakthrough Naloxone HCl 0.1 mg 10/05/24 13:31 Naloxone Hcl 0.4 Mg/Ml Vial IV PUSH Q2M PRN Opiate Reversal Ondansetron HCl 4 mg 10/05/24 13:31 Ondansetron Inj 4 Mg/2 Ml Vial IV PUSH Q6H PRN Nausea And Vomiting Labs Labs: Laboratory Results - last 24 hr 10/06/24 10/06/24 10/06/24 11:46 17:13 21:21 Hgb 8.8 L 9.7 L Hct 27.2 L 29.9 L Sodium 134 L Potassium 3.9 Chloride 100 Carbon Dioxide 28 Anion Gap 6 BUN 18 Creatinine 1.29 Estim Creat Clear Calc 63 Estimated GFR 58 L Glucose 103 Calcium 8.2 L 10/07/24 07:01 Hgb 9.6 L Hct 30.1 L Sodium Potassium Chloride Carbon Dioxide Anion Gap BUN Creatinine Estim Creat Clear Calc Estimated GFR Glucose Calcium
[2024-10-07 08:00] VITALS: PULSE 104; RESP 18; O2SAT 99
[2024-10-07] MEDS: METOPROLOL SUCCINATE EXT REL 25 MG TABCR PO (09:14)
[2024-10-07] MEDS: DOCUSATE SODIUM 100 MG CAPSULE PO (09:14)
--- NOTE | 2024-10-07 13:32 | PM.DS ---
DS: Admitting Diagnosis Discharge Date 10/07/2024 Admitting Diagnosis prostate cancer DS: Discharge Diagnosis Discharge Diagnosis (1) Prostate cancer: Code(s): C61 - Malignant neoplasm of prostate Status: Acute (2) Acute hyponatremia: Code(s): E87.1 - Hypo-osmolality and hyponatremia Status: Acute (3) Tachycardia: Code(s): R00.0 - Tachycardia, unspecified Status: Acute Plan -sodium levels and tachycardia have improved. -patient feels good and is ready for discharge -discharge with santiago -follow up with scheduled appointments for cystogram and voiding trial. DS: Summary Hospital Course Hospital Course: POD 2 Robotic assisted nerve-sparing prostatectomy with right pelvic lymph node dissection with post op hyponatremia and tachycardia. h/h stable. Status at Discharge Functional status at discharge: independent ambulation Time Spent with Patient Time attestation: Total time spent providing and/or coordinating discharge services: Exam Const: General: comfortable and no acute distress HENMT: Mouth: Yes moist mucous membranes Eyes: General: appearance normal, both eyes and all related structures Resp: Effort & Inspection: normal respiratory effort Cardio: Rate: regular rate Rhythm: regular rhythm GI: GI Palp: Yes Soft to palpation and Yes Tenderness to palpation present (GI) Auscultation: normal bowel sounds : Male General Exam: Yes normal external exam Urinary Catheter: Urinary Catheter: patent and draining and urine clear Skin: General skin exam: normal color Other: abdominal incisions CDI and well approximated Extrem: General: normal to inspection Psych: Mental Status: mental status grossly normal DS: Data Data Completed and Pending Completed studies during hospitalization: Pending at discharge 10/05/24 11:03 Surgical [PTH] Routine Labs on day of discharge: Labs from last 24 hours 10/07/24 10/06/24 10/06/24 07:01 21:21 17:13 Hgb 9.6 L 9.7 L 8.8 L Hct 30.1 L 29.9 L 27.2 L Discharge Plan Discharge Attending physician on discharge: José Manuel Loo Consulting providers: [place] Discharging Clinician: Grazyna Galo Patient Disposition: Home Activity: other - see discharge instructions Diet: as tolerated Wound Care Instructions: follow printed instructions Patient Instructions: Antibiotic Form Patient Language: Telugu Stand Alone Forms: General Discharge Information Follow-up/Referrals: José Manuel Loo MD [Physician] - (follow up as scheduled) Discharge Medications: New docusate sodium 100 mg Capsule 100 mg PO BID Qty: 20 0RF levofloxacin 500 mg Tablet 500 mg PO DAILY 10 Days Qty: 10 0RF Continued lisinopril 20 mg tablet 20 mg PO DAILY Qty: 90 1RF Patient Comments: QAM atorvastatin 10 mg tablet 10 mg PO QHS Qty: 90 1RF metoprolol succinate 25 mg tablet extended release 24 hr 25 mg PO DAILY Qty: 90 1RF Patient Comments: QAM Other Ambulatory Orders: Urine Culture, Routine (Routine) Timeframe: 20240923 Location: None Selected Ordered By: José Manuel Loo Urine Culture, Routine (Routine) Timeframe: 20240923 Location: None Selected Ordered By: José Manuel Loo Date of admission: 10/06/24 19:06 Primary Care Provider: Terrence Hunter Admitting Provider: Anabell Lyles Attending physician on admission: José Manuel Loo Condition: Stable
--- NOTE | 2024-10-07 16:50 | P.PNIM_ITS ---
Progress Note: A&P Assessment and Plan (1) Tachycardia: Code(s): R00.0 - Tachycardia, unspecified Status: Acute Assessment and Plan: Patient may be under resuscitated after OR verses pain related versus other 1 L fluid bolus Continue to monitor Hemoglobin is stable (2) Hyponatremia: Code(s): E87.1 - Hypo-osmolality and hyponatremia Status: Acute Assessment and Plan: Fluid bolus in IVF Repeat labs in the a.m. (3) Prostate cancer: Code(s): C61 - Malignant neoplasm of prostate Status: Acute Assessment and Plan: Status post resection Pain management per Urology Subjective Date/time seen: 10/07/24 16:50 Review of Systems Review of Systems: 12 systems were reviewed and are negativ e except for as per HPI. Objective Data Vital Signs Vital Signs: Vital Signs - 24 hr 10/06/24 19:40 10/06/24 22:00 10/07/24 08:00 Temperature 36.4 C Pulse Rate 104 H 104 H 104 H Respiratory Rate 18 18 18 Blood Pressure 125/85 Pulse Oximetry 99 99 99 Oxygen Delivery Room Air Room Air Intake/Output Intake/Output: Intake & Output 10/04/24 10/05/24 10/06/2425 23:59 23:59 23:59 23:59 Intake Total 1526.3 3520 660 Output Total 665 3287 2743 Balance 1186.6 -284 -7773 Meds/Results Medications: Active Medications Generic Name Dose Route Start Last Admin Trade Name Freq PRN Reason Stop Dose Admin Hydrocodone Bitart/Acetaminophen 1 tab 10/05/24 15:37 10/05/24 16:49 Hydrocodone/Acetaminophen (*Crx) 5-325 Mg Tablet PO 1 tab Q4H PRN Administration Pain Rated 4-6 Hydrocodone Bitart/Acetaminophen 2 tab 10/05/24 15:43 10/06/24 22:57 Hydrocodone/Acetaminophen (*Crx) 5-325 Mg Tablet PO 2 tab Q4H PRN Administration Pain Rated 7-10 Atorvastatin Calcium 10 mg 10/05/24 21:00 10/06/24 20:49 Atorvastatin 10 Mg Tablet PO 10 mg QHS MAREN Administration Docusate Sodium 100 mg 10/05/24 17:00 10/07/24 09:14 Docusate Sodium 100 Mg Capsule PO 100 mg BID MAREN Administration Hyoscyamine 0.125 mg 10/05/24 13:31 10/05/24 19:15 Hyoscyamine Sulfate 0.125 Mg Tablet SUBLINGUAL 0.125 mg Q4H PRN Administration Bladder Spasm Lactated Ringer's 1,000 mls @ 125 mls/hr 10/05/24 13:31 10/07/24 13:58 Lr - Lactated Ringers Iv IV CONT Not Given .Q8H MAREN Levofloxacin 500 mg 10/06/24 09:00 10/07/24 09:14 Levofloxacin 500 Mg Tablet PO 500 mg DAILY MARNE Administration Lisinopril 20 mg 10/06/24 09:00 10/07/24 09:14 Lisinopril 20 Mg Tablet PO 20 mg DAILY MAREN Administration Metoprolol Succinate 25 mg 10/06/24 09:00 10/07/24 09:14 Metoprolol Succinate Ext Rel 25 Mg Tabcr PO 25 mg DAILY MAREN Administration Morphine Sulfate 1 mg 10/05/24 13:31 Morphine Sulfate (*Crx) 2 Mg/Ml Inj IV PUSH Q2H PRN Pain Rated 7-10 breakthrough Naloxone HCl 0.1 mg 10/05/24 13:31 Naloxone Hcl 0.4 Mg/Ml Vial IV PUSH Q2M PRN Opiate Reversal Ondansetron HCl 4 mg 10/05/24 13:31 Ondansetron Inj 4 Mg/2 Ml Vial IV PUSH Q6H PRN Nausea And Vomiting Labs Labs: Laboratory Results - last 24 hr 10/06/24 10/06/24 10/07/24 17:13 21:21 07:01 Hgb 8.8 L 9.7 L 9.6 L Hct 27.2 L 29.9 L 30.1 L Quality VTE Prophylaxis VTE prophylaxis: mechanical ordered
== END 2024-10-07 16:58 | disposition home or self-care (01) ==
LOC: ANHSURGERY 20:54 → ANH3MEDSUR 20:54
PROVIDERS: Nurse Practitioner Family; Nurse Practitioner Gerontology; Admitting Provider Urology; PCP Family Medicine; Visit Provider Urology
PROC: 0VT04ZZ Resection of Prostate, Percutaneous Endoscopic Approach (ICD-10-PCS; CPT 55867; principal; 2024-10-05 07:30)
DX: C61 Malignant neoplasm of prostate (principal); E87.1 Hypo-osmolality and hyponatremia; R00.0 Tachycardia, unspecified; I10 Essential (primary) hypertension; E78.6 Lipoprotein deficiency; F17.220 Nicotine dependence, chewing tobacco, uncomplicated; Z79.899 Other long term (current) drug therapy
CPT/HCPCS: 55866; 38570; S2900; 36415; 80048; 85014; 85018; 88309; 93005; J0690; A9270; G0378; J1100; J1171; J1885; J2003; J2250; J2405; J2704; J3010; J7030; J7040; J7120; Q9968

== ENCOUNTER 2024-10-14 11:24 | Outpatient (CLI) | payer OTHER, SELFPAY ==
--- NOTE | ~2024-10-14 | XR_ITS ---
EXAMINATION: CYSTOGRAM DATE: 10/14/2024 12:19 INDICATION: Prostate cancer TECHNIQUE: Initial food processor radiograph of the pelvis was performed. There was retrograde administration of Omnipaque 350 mixed with saline contrast into patient's existing Cristina catheter. Fluoroscopic eva ges of the pelvis were obtained. A post-void image was also performed. Fluoroscopy exposure time was 0.6 minutes. Total DAP was 9.723 Gycm^2. FINDINGS: V-shaped configuration at the base of the prostate consistent with changes of prior prostat ectomy. There is somewhat delayed leakage of contrast seen only on the bladder is fully distended whi ch is seen which extending into the retroperitoneal space on both the left and right from the level o f the prostatectomy bed. IMPRESSION: Status post prostatectomy with bladder leak at the cystourethral anastomosis. Reviewed, dictated and finalized at location A.
== END 2024-10-14 11:25 | disposition home or self-care (01) ==
PROVIDERS: PCP Family Medicine; Visit Provider Urology
DX: C61 Malignant neoplasm of prostate (principal)
CPT/HCPCS: 51600; 74430; Q9967

== ENCOUNTER 2024-10-20 11:12 | Outpatient (CLI) | payer OTHER, SELFPAY ==
--- NOTE | ~2024-10-20 | XR_ITS ---
EXAMINATION: CYSTOGRAM DATE: 10/20/2024 11:57 INDICATION: Follow-up bladder leak post prostatectomy for prostate cancer. TECHNIQUE: Initial mercantile agent radiograph of the pelvis was performed. There was retrograde administration of 100 mL Omnipaque 350 mixed with saline contrast into patient's existing Cristina catheter. Fluorosco pic images of the pelvis were obtained. A post-void image was also performed. Fluoroscopy exposure ti me was 0.4 minutes. A total of 12 fluoroscopic images and one overhead radiograph were obtained. Tota l DAP was 8.706 mGycm^2. FINDINGS: V-shaped configuration at the base of the bladder consistent with prior prostatectomy. There is persi stent bladder leak at the cystourethral anastomosis extending superolaterally from the right side of the prostatectomy bed. The previous separate appearing left-sided bladder leak appears to have resolv ed. Bladder is otherwise unremarkable. IMPRESSION: Status post prostatectomy with persistent bladder leak at the right side of the cystourethral anastom osis. The left-sided leak has resolved. Reviewed, dictated and finalized at location A. IMPRESSION: Status post prostatectomy with persistent bladder leak at the right side of the cystourethral anastomosis. The left-sided leak has resolved.
== END 2024-10-20 11:13 | disposition home or self-care (01) ==
PROVIDERS: PCP Family Medicine; Visit Provider Urology
DX: C61 Malignant neoplasm of prostate (principal)
CPT/HCPCS: 51600; 74430; Q9967